=== PATIENT | male | born 1945 | race Caucasian/White ===

== ENCOUNTER 2021-07-11 08:22 | Outpatient (CLI) | payer MEDICARE, OTHER | END 2021-07-11 10:17 | disposition home or self-care (01) | LOC: LAB 08:22 | PROVIDERS: ATTEND Surgery | DX: Z01.812 Encounter for preprocedural laboratory examination (principal); Z20.822 Contact with and (suspected) exposure to COVID-19 ==

== ENCOUNTER 2021-07-12 07:57 | Day surgery (SDC) | payer MEDICARE, OTHER ==
[2021-07-12 08:27] LABS: HEMATOCRIT 39.9 % (36.7-47.1); MEAN CORPUSCULAR HEMOGLOBIN 31.6 uug (23.8-33.4); MEAN CORPUSCULAR VOLUME 91.9 fL (73.0-96.2); PLATELET COUNT (AUTO) 176 K/uL (152-348)
[2021-07-12 08:31] LABS: *BILIRUBIN,URIN NEGATIVE (NEGATIVE); *CLARITY,URINE CLEAR (CLEAR); *COLOR,URINE YELLOW (YELLOW); *KETONES,URINE NEGATIVE (NEGATIVE); *UROBILINOGEN,URINE 0.2 E.U./dl (NORMAL); LEUKOCYTE ESTERASE ,URINE NEGATIVE (NEGATIVE); NITRITE, URINE NEGATIVE (NEGATIVE); PH,URINE 5.5 (5.0-8.0); UGLUCOSE NEGATIVE (NEGATIVE)
[2021-07-12 08:32] LABS: *BLOOD, URINE TRACE (NEGATIVE)
[2021-07-12 08:35] LABS: CREATININE 1.1 mg/dL (0.6-1.3); POTASSIUM 4.4 mmol/L (3.5-5.1)
[2021-07-12 08:41] LABS: BILIRUBIN,TOTAL 0.5 mg/dL (0.2-1.0); TOTAL PROTEIN, SERUM 7.3 g/dL (6.4-8.2)
[2021-07-12] MEDS ORDERED: FENTANYL CITRATE 100 MCG/2 ML AMPUL ONE (08:46)
[2021-07-12] MEDS ORDERED: LIDOCAINE-MPF 2% 5 ML VIAL ONE (11:22)
[2021-07-12] MEDS ORDERED: PROPOFOL 200 MG/20 ML BOTTLE ONE (11:22)
[2021-07-12 11:50] LABS: BACTERIA,URINE NONE SEEN /HPF (NONE SEEN); RBC,URINE 0-3 /HPF (0-3); SQUAMOUS EPITHELIAL CELL,UR NONE SEEN /HPF (NONE SEEN); WBC,URINE NONE SEEN /HPF (0-3)
== END 2021-07-12 12:10 | disposition home or self-care (01) ==
LOC: DS 07:57
PROVIDERS: ATTEND Surgery
DX: R13.10 Dysphagia, unspecified (principal); R11.2 Nausea with vomiting, unspecified; K44.9 Diaphragmatic hernia without obstruction or gangrene; K21.00 Gastro-esophageal reflux disease with esophagitis, without bleeding; I25.10 Atherosclerotic heart disease of native coronary artery without angina pectoris; I10 Essential (primary) hypertension; N40.0 Benign prostatic hyperplasia without lower urinary tract symptoms; M19.90 Unspecified osteoarthritis, unspecified site; K29.50 Unspecified chronic gastritis without bleeding; Z79.899 Other long term (current) drug therapy; Z98.890 Other specified postprocedural states
CPT/HCPCS: 36415; 43239; 80053; 81001; 85025; 85730; 88305; 88313; 88342; 93005; J3010; J3490; J7120